=== PATIENT | female | born 1990 | race Caucasian/White ===

== ENCOUNTER 2016-07-27 21:28 | Emergency (ER) | payer SELFPAY ==
[~2016-07-27] VITALS: Ht 162.6 cm; Wt 61.0 kg
[2016-07-27] MEDS ORDERED: BACITRACIN ZINC OINT UDPKT TOP ONE ×2 (23:00)
[2016-07-27] MEDS ORDERED: LIDOCAINE HCL 1%/EPI 1:200,000 30 ML VIAL MC ONE (23:00)
[2016-07-27] MEDS ORDERED: IBUPROFEN 600MG TABLET PO ONE (23:15)
[2016-07-28] MEDS ORDERED: HYDROCODONE/ACETAMINOPHEN 5/325MG TABLET PO ONE
[2016-07-28 00:04] VITALS: BP 112/65
== END 2016-07-28 00:10 | disposition home or self-care (01) ==
LOC: ER 21:40
DX: S01.81XA Laceration without foreign body of other part of head, initial encounter (principal); S00.83XA Contusion of other part of head, initial encounter; W45.8XXA Other foreign body or object entering through skin, initial encounter; W22.8XXA Striking against or struck by other objects, initial encounter; Y93.89 Activity, other specified; Y92.010 Kitchen of single-family (private) house as the place of occurrence of the external cause
CPT/HCPCS: 12013; 99284; Z7610

== ENCOUNTER 2016-08-03 11:49 | Emergency (ER) | payer MEDICAID ==
[~2016-08-03] VITALS: Ht 154.9 cm; Wt 87.0 kg
[2016-08-03 12:20] VITALS: BP 106/55
== END 2016-08-03 14:35 | disposition home or self-care (01) ==
LOC: ER 14:34
DX: Z48.02 Encounter for removal of sutures (principal); R51 Headache
CPT/HCPCS: 99281; Z7610